=== PATIENT | male | born 1970 | race Caucasian/White ===

== ENCOUNTER 2021-03-25 11:49 | Emergency (ER) | payer OTHER ==
[~2021-03-25] VITALS: Ht 185.4 cm; Wt 98.4 kg
[2021-03-25] MEDS ORDERED: CASIRIVIMAB/IMDEVIMAB 10 ML in SODIUM CHLORIDE 0.9% 100 ML IV ONE ×4 (12:00)
== END 2021-03-25 13:04 | disposition home or self-care (01) ==
LOC: ER 11:54
DX: U07.1 COVID-19 (principal); I10 Essential (primary) hypertension; E11.9 Type 2 diabetes mellitus without complications; Z88.7 Allergy status to serum and vaccine
CPT/HCPCS: 99282; J7050